=== PATIENT | male | born 2000 | race Caucasian/White ===

== ENCOUNTER 2021-08-22 16:34 | Emergency (ER) | payer BC ==
[2021-08-22 16:42] VITALS: BP 134/83; PULSE 119
[2021-08-22 17:16] LABS: ANION GAP 8.5 meq/L (7-15)
[2021-08-22 18:01] LABS: CORONAVIRUS COVID-19 NAA POSITIVE (NEGATIVE); RESPIRATORY SYNCYTIAL VIR NAA NEGATIVE (NEGATIVE)
== END 2021-08-22 18:24 | disposition home or self-care (01) ==
LOC: LL.ED 16:34
DX: U07.1 COVID-19 (principal); E66.9 Obesity, unspecified; Z68.32 Body mass index [BMI] 32.0-32.9, adult; Z88.0 Allergy status to penicillin
CPT/HCPCS: 0241U; 36415; 71046; 80053; 83605; 85027; 99285